=== PATIENT | male | born 1970 | race Caucasian/White ===

== ENCOUNTER 2024-04-25 12:10 | Emergency (ER) | payer OTHER ==
[~2024-04-25] VITALS: Ht 175.3 cm; Wt 86.2 kg
[2024-04-25 12:10] VITALS: BP_SYST 200; PULSE 77; RESP 18; TEMP 97.8; O2SAT 96
[2024-04-25] MEDS ORDERED: ceFAZolin SODIUM 1 GM VIAL ONE (12:53)
[2024-04-25] MEDS: ceFAZolin SODIUM 2 GM in D5W 100 ML IV ONE (13:05)
[2024-04-25] MEDS: LIDOCAINE 1% 10 MG/ML, 20 ML MDV INJ ONE (13:06)
[2024-04-25] MEDS: ONDANSETRON HCL 4 MG/2 ML VIAL IVP ONE (13:06)
[2024-04-25] MEDS: MORPHINE 4 MG INJ. 4 MG/ML VIAL IVP ONE (13:06)
[2024-04-25] MEDS ORDERED: HYDR-3921 PO (14:47)
[2024-04-25] MEDS ORDERED: CEPH250C PO (14:47)
== END 2024-04-25 15:04 | disposition home or self-care (01) ==
LOC: SED 12:10
DX: S62.635B Displaced fracture of distal phalanx of left ring finger, initial encounter for open fracture (principal); F17.210 Nicotine dependence, cigarettes, uncomplicated; W22.8XXA Striking against or struck by other objects, initial encounter; Y93.89 Activity, other specified; Y92.89 Other specified places as the place of occurrence of the external cause; Y99.8 Other external cause status
CPT/HCPCS: 99284; 96365; 96375; 73140; 29130; J0690; J2405; J2270; J2001